=== PATIENT | female | born 1985 | race Two or more races ===

== ENCOUNTER → 2025-05-23 | Outpatient (CLI) | payer MEDICAID, SELFPAY ==
--- NOTE | 2025-05-23 13:30 | XR_ITS ---
Examination: Breast ultrasound complete, bilateral Date and time of exam: May 23, 2025 1349 hours INDICATIONS: Right breast lump noticed beginning 10 years ago Technique: Real-time grayscale ultrasonographic imaging bilateral breasts, including all 4 quadrants as well as nipple retroareolar and axillary regions. Findings: Sonographic images right breast Multiple benign cysts 9:00 oval mass lobular margins 5 x 4 mm 10:00 intramammary lymph node 11 x 14 mm Sonographic images left breast Multiple benign cysts No solid nodule depicted IMPRESSION: BI-RADS Category 3: Probably benign findings One additional 6 month right breast sonogram follow-up needed to document stability of 9:00 nodule right breast
--- NOTE | 2025-05-23 14:30 | XR_ITS ---
Examination: Diagnostic digital mammography, bilateral Computer aided detection 3-D breast Tomosynthesis, bilateral Date and time of exam: May 23, 2025 1423 hours INDICATIONS: Right breast lump 8 years Technique: Nonmagnified MLO, CC views of the breasts to been obtained, reconstructed from 3-D Tomosynthesis images. R2 computer aided detection program utilized for evaluation of suspicious masses and/or abnormal calcifications. 3-D Tomosynthesis images obtained. Findings: The breasts are heterogeneously dense, which may obscure small masses Breast biopsy marker upper outer right breast Circumscribed nodule 12 mm upper right breast posterior depth Impression: BI-RADS Category 3: Probably benign findings One additional 6 month right mammogram follow-up is needed.
== END | disposition home or self-care (01) ==
LOC: CDIM 13:26
PROVIDERS: PCP Family Medicine
DX: N60.12 Diffuse cystic mastopathy of left breast (principal); N60.11 Diffuse cystic mastopathy of right breast; N63.15 Unspecified lump in the right breast, overlapping quadrants; R92.333 Mammographic heterogeneous density, bilateral breasts
CPT/HCPCS: 76641; 77062; 77066; G0279